=== PATIENT | female | born 1970 | race Caucasian/White ===

== ENCOUNTER 2017-05-13 12:10 | Emergency (ER) | payer BC ==
[~2017-05-13] VITALS: Ht 154.9 cm; Wt 65.8 kg
[~2017-05-13 12:10] MED LIST: AMOXICILLIN500 M2 PO; NAPROSYN500 MG PO
[2017-05-13] MEDS ORDERED: PREDNISONE10 MG PO (12:35)
[2017-05-13] MEDS ORDERED: CLARITIN10 MG PO (12:35)
[2017-05-13] MEDS ORDERED: FLONASE ALLERG9.9 ML NAS (12:35)
[2017-05-13] MEDS ORDERED: ROBITUSSIN DM 105 ML PO (12:35)
[2017-05-13 13:05] LABS: BILIRUBIN NEGATIVE (NEGATIVE); BLOOD NEGATIVE (NEGATIVE); CLARITY CLEAR (CLEAR); COLOR YELLOW (YELLOW); GLUCOSE NEGATIVE (NEGATIVE); KETONE NEGATIVE (NEGATIVE); LEUKO ESTERASE NEGATIVE (NEGATIVE); NITRITE NEGATIVE (NEGATIVE); SPECIFIC GRAVITY <= 1.005 (1.005-1.030); UROBILINOGEN 0.2 E.U./dl (0.2-1.0)
[2017-05-13 13:12] LABS: BACTERIA TRACE
== END 2017-05-13 13:44 | disposition home or self-care (01) ==
LOC: ED 12:10
PROVIDERS: Nurse Practitioner Family
DX: B34.9 Viral infection, unspecified (principal); R03.0 Elevated blood-pressure reading, without diagnosis of hypertension; F17.200 Nicotine dependence, unspecified, uncomplicated; Z88.0 Allergy status to penicillin